=== PATIENT | female | born 1950 | race Caucasian/White ===

== ENCOUNTER → 2017-01-27 | Outpatient (CLI) | payer OTHER ==
[~2017-01-27] MED LIST: ALLEGRA ALLERG180 MG PO; CARTIA XT180 MG PO; COUMADIN3 MG PO; DILTIAZEM 24HR180 MG PO; DILTIAZEM 24HR240 MG PO; ERYTHROMYC1 APPLICAT BOTH EYES; METOPROLOL SUCC25 MG PO; MULTAQ400 MG PO; STOOL SOFTENER100 MG PO; WARFARIN SODIUM3 MG PO; WARFARIN SODIUM4 MG PO
[2017-01-27 09:40] LABS: HEMATOCRIT 42.4 % (36.0-46.0); MCH 29.4 PG (29.0-34.0); MCHC 32.3 G/DL (30.0-36.0); MEAN PLAT.VOLUME 9.2 uM^3 (9.5-12.4); PLATELET COUNT 303 K/uL (156-360); RBC DIS.WIDTH-CV 14.8 % (11.8-14.6); RBC DIS.WIDTH-SD 49.6 % (39-53); RED BLOOD COUNT 4.66 M/uL (3.80-5.20); WHITE BLOOD COUNT 7.5 K/uL (4.1-10.2)
[2017-01-27 09:52] LABS: PROTHROMBIN TIME 16.1 (9.2-11.2); PTT 34.5 (25-32)
[2017-01-27 09:54] LABS: INTER. NORMALIZED RATIO 1.6
== END | disposition home or self-care (01) ==
LOC: OPR 08:45 → EDSTATUS 09:00
PROVIDERS: Internal Medicine Hematology & Oncology
PROC: 0DBS3ZX (ICD-10-PCS; principal; 2017-01-27)
DX: C78.6 Secondary malignant neoplasm of retroperitoneum and peritoneum (principal); F17.210 Nicotine dependence, cigarettes, uncomplicated; L40.9 Psoriasis, unspecified; Z68.30 Body mass index [BMI] 30.0-30.9, adult; Z95.4 Presence of other heart-valve replacement; Z79.01 Long term (current) use of anticoagulants
CPT/HCPCS: 77012; 85027; 85610; 85730; 88305; 88341 TC; 88342 TC; J3010

== ENCOUNTER 2017-08-27 13:22 | Inpatient (IN) | payer OTHER ==
[~2017-08-27] VITALS: Ht 162.6 cm; Wt 56.3 kg
[~2017-08-27 13:22] MED LIST changes: +CARDIZEM30 MG PO
[2017-08-27 14:05] LABS: EOSINOPHIL (%) 0 % (0-5); HEMATOCRIT 35.2 % (36.0-46.0); IMMATURE GRANULOCYTE COUNT 0.2 K/uL; INSTRUMENT ABS NEUTROPHIL CT 13.1 K/uL; LYMPHOCYTE COUNT 1.7 K/uL (1.0-2.8); MCH 29.7 PG (29.0-34.0); MCHC 32.4 G/DL (30.0-36.0); MCV 91.7 FL (83-99); MEAN PLAT.VOLUME 9.5 uM^3 (9.5-12.4); MONOCYTE (%) 5.2 % (3-12); MONOCYTE COUNT 0.8 K/uL (0-0.8); NEUTROPHIL (%) 82.7 % (45-76); NEUTROPHIL COUNT 13.1 K/uL (1.8-6.4); PLATELET COUNT 402 K/uL (156-360); RBC DIS.WIDTH-CV 17.4 % (11.8-14.6); RBC DIS.WIDTH-SD 58.2 % (39-53); RED BLOOD COUNT 3.84 M/uL (3.80-5.20); WHITE BLOOD COUNT 15.8 K/uL (4.1-10.2)
[2017-08-27 14:05] LABS: ADD MIUA? YES; BILIRUBIN NEGATIVE; BLOOD NEGATIVE; COLOR AMBER ((YELLOW)); GLUCOSE (STRIP) NEGATIVE; KETONES NEGATIVE; LEUKOCYTES MODERATE; NITRITE NEGATIVE; PROTEIN (STRIP) 30; SPECIFIC GRAVITY 1.018 (1.000-1.030)
[2017-08-27 14:11] LABS: PROTHROMBIN TIME 11.6 SEC (10.2-12.9)
[2017-08-27 14:14] LABS: BACTERIA RARE /HPF; EPITHELIAL CELLS RARE /HPF; HYALINE CASTS 0-5 /LPF; MUCUS TRACE /LPF; RED BLOOD CELLS 0-5 /HPF (0-5); UCUL ADDED? YES; WHITE BLOOD CELLS 20-30 /HPF (0-5)
[2017-08-27 14:14] LABS: PTT 32.7 SEC (25-37)
[2017-08-27 14:21] LABS: CREATINE KINASE 116 IU/L (1-294); TOTAL CK 116 IU/L (1-294)
[2017-08-27 14:25] LABS: TROP-I INTERPRETATION NEGATIVE; TROPONIN-I 0.02 ng/mL (0.0-0.30)
[2017-08-27 14:27] LABS: CK-MB 1.5 ng/mL (0.0-4.9)
[2017-08-27 15:13] LABS: CHLORIDE 106 mEq/L (99-109); POTASSIUM 5.3 mEq/L (3.7-5.4)
[2017-08-27 15:14] LABS: SODIUM 136 mEq/L (136-147)
[2017-08-27 15:17] LABS: ANION GAP 7 MEQ/L (2-14); GLUCOSE 71 mg/dL (70-99)
[2017-08-27 15:18] LABS: TOTAL BILIRUBIN 0.6 mg/dL (0.0-1.0)
[2017-08-27 15:19] LABS: ALKALINE PHOSPHATASE 214 IU/L (3-129); GFR ESTIMATE (CALCULATED) > 59 mL/min/
[2017-08-27 15:21] LABS: UREA NITROGEN (BUN) 20 mg/dL (9-23)
[2017-08-27] MEDS ORDERED: DRONABINOL2.5 MG PO (23:00)
[2017-08-27] MEDS ORDERED: K-DUR20 MEQ PO (23:01)
[2017-08-27] MEDS ORDERED: MAGNESIUM400 M1 PO (23:01)
[2017-08-27] MEDS ORDERED: BENADRYL25 MG PO (23:02)
[2017-08-27] MEDS ORDERED: ARIXTRA5 MG/0.4 M SC (23:02)
[2017-08-27] MEDS ORDERED: TRAMADOL HCL50 MG PO (23:03)
[2017-08-27] MEDS ORDERED: ATIVAN0.5 MG PO (23:03)
[2017-08-27] MEDS ORDERED: MIRALAX17 GM PO (23:03)
[2017-08-27] MEDS ORDERED: ASCORBIC ACID500 M3 PO (23:04)
[2017-08-27] MEDS ORDERED: DIGOX250 MCG PO (23:04)
[2017-08-27] MEDS ORDERED: GAS RELIEF 8080 MG PO (23:05)
[2017-08-27] MEDS ORDERED: WELLBUTRIN SR100 MG PO (23:05)
[2017-08-27] MEDS ORDERED: ZOFRAN4 MG PO (23:06)
[2017-08-27] MEDS ORDERED: MILK OF MAGN PO (23:06)
[2017-08-27] MEDS ORDERED: DULCOLAX10 MG PR (23:07)
[2017-08-27] MEDS ORDERED: CALMOSEPTINE O120 GM TP (23:07)
[2017-08-27] MEDS ORDERED: LASIX20 MG PO (23:08)
[2017-08-27] MEDS ORDERED: PROVENTIL,2.5 MG/3 M IH (23:08)
[2017-08-27] MEDS ORDERED: ZINC OXIDE56.7 GM TP (23:08)
[2017-08-27] MEDS ORDERED: EXTRA STRENGTH500 M1 PO (23:09)
[2017-08-28 00:50] LABS: TROP-I INTERPRETATION NEGATIVE; TROPONIN-I < 0.01 ng/mL (0.0-0.30)
[2017-08-28 04:43] VITALS: BP 133/57
[2017-08-28 07:08] LABS: TROP-I INTERPRETATION NEGATIVE; TROPONIN-I 0.01 ng/mL (0.0-0.30)
[2017-08-28 08:13] VITALS: BP 136/57
[2017-08-28 12:17] VITALS: BP 124/76
[2017-08-28 12:18] LABS: POINT-OF-CARE METER ID UU14149397
[2017-08-28 16:36] LABS: POINT-OF-CARE METER ID UU14117124
[2017-08-28 16:39] VITALS: BP 109/53
[2017-08-28 19:35] LABS: POINT-OF-CARE METER ID UU14117124
[2017-08-28 21:55] LABS: POINT-OF-CARE METER ID UU14117124
[2017-08-29 00:18] VITALS: BP 119/56
[2017-08-29 04:00] VITALS: BP 113/53
[2017-08-29 05:47] LABS: POINT-OF-CARE METER ID UU14149397
[2017-08-29 06:55] LABS: POINT-OF-CARE METER ID UU14149397
[2017-08-29 07:27] VITALS: BP 116/55
[2017-08-29 07:41] LABS: HEMATOCRIT 31.9 % (36.0-46.0); MCH 29.2 PG (29.0-34.0); MCHC 31.3 G/DL (30.0-36.0); MCV 93.3 FL (83-99); MEAN PLAT.VOLUME 9.8 uM^3 (9.5-12.4); PLATELET COUNT 435 K/uL (156-360); RBC DIS.WIDTH-CV 17.6 % (11.8-14.6); RBC DIS.WIDTH-SD 60.3 % (39-53); RED BLOOD COUNT 3.42 M/uL (3.80-5.20); WHITE BLOOD COUNT 15.8 K/uL (4.1-10.2)
[2017-08-29 07:51] LABS: ANION GAP 3 MEQ/L (2-14); CHLORIDE 110 MEQ/L (99-109); GFR ESTIMATE (CALCULATED) > 59 mL/min/; GLUCOSE 79 mg/dL (70-99); POTASSIUM 4.4 MEQ/L (3.7-5.4); SAMPLE HEMOLYSIS CHECK 0; SAMPLE ICTERIC CHECK 0; SAMPLE LIPEMIA CHECK 0; SODIUM 138 MEQ/L (136-147); UREA NITROGEN (BUN) 21 mg/dL (9-23)
[2017-08-29 08:54] LABS: DIGOXIN 1.3 ng/mL (0.8-2.0)
[2017-08-29 10:47] LABS: POINT-OF-CARE METER ID UU14149397
[2017-08-29 12:24] VITALS: BP 105/53
[2017-08-29 12:26] LABS: POINT-OF-CARE METER ID UU14149397
[2017-08-29 16:50] VITALS: BP 107/52
[2017-08-29 22:09] LABS: POINT-OF-CARE METER ID UU14117124
[2017-08-30 00:15] VITALS: BP 106/55
[2017-08-30 00:40] LABS: POINT-OF-CARE METER ID UU14117124
[2017-08-30 03:21] VITALS: BP 104/55
[2017-08-30 06:42] LABS: POINT-OF-CARE METER ID UU14188577
[2017-08-30 07:39] LABS: POINT-OF-CARE METER ID UU14149397
[2017-08-30 07:47] LABS: EOSINOPHIL (%) 0.8 % (0-5); EOSINOPHIL COUNT 0.1 K/uL (0-0.3); HEMATOCRIT 30.3 % (36.0-46.0); IMMATURE GRANULOCYTE (%) 0.8 % (0.0-0.7); IMMATURE GRANULOCYTE COUNT 0.1 K/uL; INSTRUMENT ABS NEUTROPHIL CT 11.7 K/uL; LYMPHOCYTE COUNT 1.8 K/uL (1.0-2.8); MCH 29.2 PG (29.0-34.0); MCV 91.3 FL (83-99); MEAN PLAT.VOLUME 10.2 uM^3 (9.5-12.4); MONOCYTE (%) 6.4 % (3-12); MONOCYTE COUNT 0.9 K/uL (0-0.8); NEUTROPHIL (%) 79.6 % (45-76); NEUTROPHIL COUNT 11.7 K/uL (1.8-6.4); NRBC (%) 0.1 /100 WBC (0-0); PLATELET COUNT 381 K/uL (156-360); RBC DIS.WIDTH-CV 17.7 % (11.8-14.6); RBC DIS.WIDTH-SD 59.1 % (39-53); RED BLOOD COUNT 3.32 M/uL (3.80-5.20); WHITE BLOOD COUNT 14.7 K/uL (4.1-10.2)
[2017-08-30 07:54] LABS: ANION GAP 5 MEQ/L (2-14); CHLORIDE 111 MEQ/L (99-109); GFR ESTIMATE (CALCULATED) > 59 mL/min/; GLUCOSE 69 mg/dL (70-99); POTASSIUM 4.4 MEQ/L (3.7-5.4); SAMPLE HEMOLYSIS CHECK 0; SAMPLE ICTERIC CHECK 0; SAMPLE LIPEMIA CHECK 0; SODIUM 137 MEQ/L (136-147); UREA NITROGEN (BUN) 17 mg/dL (9-23)
[2017-08-30 09:59] LABS: POINT-OF-CARE METER ID UU14117124
[2017-08-30 10:05] VITALS: BP 123/58
[2017-08-30 13:21] VITALS: BP 116/68
[2017-08-30 13:43] LABS: POINT-OF-CARE METER ID UU14188577
[2017-08-30 16:09] LABS: PROTHROMBIN TIME 11.6 SEC (10.2-12.9)
[2017-08-30 17:41] LABS: POINT-OF-CARE METER ID UU14188577
[2017-08-30 18:07] VITALS: BP 129/66
[2017-08-30 23:51] VITALS: BP 106/56
[2017-08-31 00:21] LABS: POINT-OF-CARE METER ID UU14117124
[2017-08-31 06:18] LABS: POINT-OF-CARE METER ID UU14117124
[2017-08-31 06:39] LABS: POINT-OF-CARE METER ID UU14117124
[2017-08-31 06:49] LABS: EOSINOPHIL (%) 0 % (0-5); HEMATOCRIT 30.1 % (36.0-46.0); IMMATURE GRANULOCYTE (%) 1.1 % (0.0-0.7); IMMATURE GRANULOCYTE COUNT 0.1 K/uL; INSTRUMENT ABS NEUTROPHIL CT 10.1 K/uL; LYMPHOCYTE COUNT 0.8 K/uL (1.0-2.8); MCH 28.8 PG (29.0-34.0); MCHC 31.2 G/DL (30.0-36.0); MCV 92.3 FL (83-99); MEAN PLAT.VOLUME 10.3 uM^3 (9.5-12.4); MONOCYTE (%) 2.3 % (3-12); MONOCYTE COUNT 0.3 K/uL (0-0.8); NEUTROPHIL (%) 89.3 % (45-76); NEUTROPHIL COUNT 10.1 K/uL (1.8-6.4); NRBC (%) 0.2 /100 WBC (0-0); RBC DIS.WIDTH-CV 17.6 % (11.8-14.6); RBC DIS.WIDTH-SD 59.1 % (39-53); RED BLOOD COUNT 3.26 M/uL (3.80-5.20); WHITE BLOOD COUNT 11.3 K/uL (4.1-10.2)
[2017-08-31 07:05] LABS: PROTHROMBIN TIME 11.9 SEC (10.2-12.9)
[2017-08-31 07:13] LABS: ANION GAP 6 MEQ/L (2-14); CHLORIDE 112 MEQ/L (99-109); GFR ESTIMATE (CALCULATED) > 59 mL/min/; POTASSIUM 4.5 MEQ/L (3.7-5.4); SAMPLE HEMOLYSIS CHECK 0; SAMPLE ICTERIC CHECK 0; SAMPLE LIPEMIA CHECK 0; SODIUM 140 MEQ/L (136-147); UREA NITROGEN (BUN) 15 mg/dL (9-23)
[2017-08-31 07:15] LABS: ALKALINE PHOSPHATASE 451 IU/L (3-129); GLUCOSE 122 mg/dL (70-99); TOTAL BILIRUBIN 0.3 MG/DL (0.0-1.0)
[2017-08-31 07:23] LABS: PLATELET COUNT 519 K/uL (156-360)
[2017-08-31 09:35] VITALS: BP 123/58
[2017-08-31 12:13] VITALS: BP 101/50
[2017-08-31 17:01] VITALS: BP 104/60
[2017-08-31 19:44] VITALS: BP 113/57
[2017-08-31 23:24] VITALS: BP 114/58
[2017-09-01 07:45] LABS: EOSINOPHIL (%) 0.1 % (0-5); HEMATOCRIT 27.7 % (36.0-46.0); IMMATURE GRANULOCYTE (%) 1.1 % (0.0-0.7); IMMATURE GRANULOCYTE COUNT 0.2 K/uL; INSTRUMENT ABS NEUTROPHIL CT 12.2 K/uL; LYMPHOCYTE COUNT 1.8 K/uL (1.0-2.8); MCH 29.5 PG (29.0-34.0); MCHC 31.8 G/DL (30.0-36.0); MEAN PLAT.VOLUME 10.2 uM^3 (9.5-12.4); MONOCYTE (%) 6.1 % (3-12); MONOCYTE COUNT 0.9 K/uL (0-0.8); NEUTROPHIL (%) 80.6 % (45-76); NEUTROPHIL COUNT 12.2 K/uL (1.8-6.4); NRBC (%) 0.1 /100 WBC (0-0); PLATELET COUNT 506 K/uL (156-360); RBC DIS.WIDTH-CV 17.8 % (11.8-14.6); RBC DIS.WIDTH-SD 59.7 % (39-53); RED BLOOD COUNT 2.98 M/uL (3.80-5.20); WHITE BLOOD COUNT 15.2 K/uL (4.1-10.2)
[2017-09-01 08:15] LABS: INTER. NORMALIZED RATIO 3.9; PROTHROMBIN TIME 45.2 SEC (10.2-12.9)
[2017-09-01 08:25] LABS: ANION GAP 7 MEQ/L (2-14); CHLORIDE 114 MEQ/L (99-109); GFR ESTIMATE (CALCULATED) > 59 mL/min/; POTASSIUM 4.4 MEQ/L (3.7-5.4); SAMPLE HEMOLYSIS CHECK 0; SAMPLE ICTERIC CHECK 0; SAMPLE LIPEMIA CHECK 0; SODIUM 139 MEQ/L (136-147); UREA NITROGEN (BUN) 13 mg/dL (9-23)
[2017-09-01 08:26] LABS: GLUCOSE 67 mg/dL (70-99)
[2017-09-01 08:51] VITALS: BP 126/58
[2017-09-01 12:08] LABS: TROP-I INTERPRETATION NEGATIVE; TROPONIN-I < 0.01 ng/mL (0.0-0.30)
[2017-09-01 12:43] VITALS: BP 125/57
[2017-09-01 15:52] VITALS: BP 121/58
[2017-09-01 20:11] VITALS: BP 102/54
[2017-09-01 20:22] VITALS: BP 79/51
[2017-09-01 23:32] VITALS: BP 124/56
[2017-09-02 03:32] VITALS: BP 109/58
[2017-09-02 07:12] LABS: EOSINOPHIL (%) 0.6 % (0-5); EOSINOPHIL COUNT 0.1 K/uL (0-0.3); HEMATOCRIT 28.6 % (36.0-46.0); IMMATURE GRANULOCYTE (%) 1.2 % (0.0-0.7); IMMATURE GRANULOCYTE COUNT 0.2 K/uL; INSTRUMENT ABS NEUTROPHIL CT 12.9 K/uL; LYMPHOCYTE COUNT 1.6 K/uL (1.0-2.8); MCH 30.2 PG (29.0-34.0); MCHC 32.9 G/DL (30.0-36.0); MEAN PLAT.VOLUME 9.9 uM^3 (9.5-12.4); MONOCYTE COUNT 0.9 K/uL (0-0.8); NEUTROPHIL COUNT 12.9 K/uL (1.8-6.4); PLATELET COUNT 435 K/uL (156-360); RBC DIS.WIDTH-CV 18.5 % (11.8-14.6); RED BLOOD COUNT 3.11 M/uL (3.80-5.20); WHITE BLOOD COUNT 15.7 K/uL (4.1-10.2)
[2017-09-02 07:42] LABS: ANION GAP 4 MEQ/L (2-14); CHLORIDE 110 MEQ/L (99-109); GFR ESTIMATE (CALCULATED) > 59 mL/min/; GLUCOSE 67 mg/dL (70-99); POTASSIUM 4.4 MEQ/L (3.7-5.4); SAMPLE HEMOLYSIS CHECK 0; SAMPLE ICTERIC CHECK 0; SAMPLE LIPEMIA CHECK 0; SODIUM 137 MEQ/L (136-147); UREA NITROGEN (BUN) 13 mg/dL (9-23)
[2017-09-02 08:03] LABS: INTER. NORMALIZED RATIO 6.7; PROTHROMBIN TIME 76.8 SEC (10.2-12.9)
[2017-09-02 08:23] VITALS: BP 122/61
[2017-09-02 12:11] VITALS: BP 99/56
[2017-09-02 15:52] VITALS: BP 108/53
[2017-09-02 20:24] VITALS: BP 108/54
[2017-09-03] VITALS (7 sets, daily range): BP systolic 104–119; BP diastolic 50–65
[2017-09-03 07:38] LABS: HEMATOCRIT 27.6 % (36.0-46.0); MCHC 31.9 G/DL (30.0-36.0); MCV 91.1 FL (83-99); MEAN PLAT.VOLUME 10.2 uM^3 (9.5-12.4); PLATELET COUNT 450 K/uL (156-360); RBC DIS.WIDTH-CV 17.7 % (11.8-14.6); RBC DIS.WIDTH-SD 58.4 % (39-53); RED BLOOD COUNT 3.03 M/uL (3.80-5.20); WHITE BLOOD COUNT 16.9 K/uL (4.1-10.2)
[2017-09-03 07:45] LABS: INTER. NORMALIZED RATIO 2.4
[2017-09-04 06:00] LABS: INTER. NORMALIZED RATIO 2.8; PROTHROMBIN TIME 32.2 SEC (10.2-12.9)
[2017-09-04 08:54] LABS: HEMATOCRIT 28.5 % (36.0-46.0); MCH 30.2 PG (29.0-34.0); MCHC 32.6 G/DL (30.0-36.0); MCV 92.5 FL (83-99); NRBC (%) 0.2 /100 WBC (0-0); PLATELET COUNT 475 K/uL (156-360); RBC DIS.WIDTH-CV 18.1 % (11.8-14.6); RBC DIS.WIDTH-SD 59.9 % (39-53); RED BLOOD COUNT 3.08 M/uL (3.80-5.20); WHITE BLOOD COUNT 12.6 K/uL (4.1-10.2)
[2017-09-04 09:13] VITALS: BP 96/56
[2017-09-04] MEDS ORDERED: COUMADIN1 MG PO (11:39)
[2017-09-04] MEDS ORDERED: CARDIZEM CD,CA180 MG PO (11:39)
[2017-09-04 11:58] VITALS: BP 105/59
[2017-09-04] MEDS ORDERED: NORCO 5/3251 TABLET PO (12:05)
[2017-09-04 16:40] VITALS: BP 96/51
== END 2017-09-04 18:47 | DRG 481 ==
LOC: EME 13:22 → EDOF 21:46 → 3EAST 21:46 → ENRESERV 21:48 → CANRESERV 21:48 → ENRESERV 08-28 01:00 → 3EAST 08-28 02:14
PROVIDERS: Emergency Medicine; Hospitalist; Internal Medicine; Nurse Practitioner Adult Health
PROC: 0QS704Z Reposition Left Upper Femur with Internal Fixation Device, Open Approach (ICD-10-PCS; principal; 2017-08-30)
DX: S72.002A Fracture of unspecified part of neck of left femur, initial encounter for closed fracture (principal); W18.30XA Fall on same level, unspecified, initial encounter; Y92.121 Bathroom in nursing home as the place of occurrence of the external cause; E46 Unspecified protein-calorie malnutrition; C56.9 Malignant neoplasm of unspecified ovary; C78.6 Secondary malignant neoplasm of retroperitoneum and peritoneum; I27.20 Pulmonary hypertension, unspecified; I48.0 Paroxysmal atrial fibrillation; T81.30XD Disruption of wound, unspecified, subsequent encounter; T81.89XD Other complications of procedures, not elsewhere classified, subsequent encounter; I48.2 Chronic atrial fibrillation; D63.8 Anemia in other chronic diseases classified elsewhere; R29.6 Repeated falls; D24.1 Benign neoplasm of right breast; E11.9 Type 2 diabetes mellitus without complications; E78.5 Hyperlipidemia, unspecified; G47.33 Obstructive sleep apnea (adult) (pediatric); I10 Essential (primary) hypertension; I25.10 Atherosclerotic heart disease of native coronary artery without angina pectoris; J43.9 Emphysema, unspecified; K21.9 Gastro-esophageal reflux disease without esophagitis; L40.9 Psoriasis, unspecified; F32.9 Major depressive disorder, single episode, unspecified; F41.9 Anxiety disorder, unspecified; Z79.01 Long term (current) use of anticoagulants; Z87.891 Personal history of nicotine dependence; Z86.14 Personal history of Methicillin resistant Staphylococcus aureus infection; Z82.49 Family history of ischemic heart disease and other diseases of the circulatory system; Z86.718 Personal history of other venous thrombosis and embolism; Z86.73 Personal history of transient ischemic attack (TIA), and cerebral infarction without residual deficits; Z90.710 Acquired absence of both cervix and uterus; Z90.81 Acquired absence of spleen; Z93.3 Colostomy status; Z95.2 Presence of prosthetic heart valve
CPT/HCPCS: 36415; 70450; 71010; 73502; 73700; 76000; 80048; 80053; 80162; 81003; 82550; 82553; 82948; 83605; 84484; 85025; 85027; 85610; 85730; 86304 GA; 87040; 87086; 93005; 93306; 97530 GO; 97530 GP; 99202; 99281; 99285; C1713; C1755; J0131; J0690; J0696; J1100; J1170; J1652; J1885; J2270; J2405; J3010; J7030; Q0167

== ENCOUNTER 2017-09-20 05:03 | Inpatient (IN) | payer OTHER ==
[~2017-09-20] VITALS: Ht 157.5 cm; Wt 97.1 kg
[~2017-09-20 05:03] MED LIST changes: +ARIXTRA5 MG/0.4 M SC; +ASCORBIC ACID500 M3 PO; +ATIVAN0.5 MG PO; +BENADRYL25 MG PO; +CALMOSEPTINE O120 GM TP; +CARDIZEM CD,CA180 MG PO; +COUMADIN1 MG PO; +DIGOX250 MCG PO; +DRONABINOL2.5 MG PO; +DULCOLAX10 MG PR; +EXTRA STRENGTH500 M1 PO; +GAS RELIEF 8080 MG PO; +LASIX20 MG PO; +MAGNESIUM400 M1 PO; +MILK OF MAGN PO; +MIRALAX17 GM PO; +NORCO 5/3251 TABLET PO; +POTASSIUM CHLO20 ME2 PO; +PROVENTIL,2.5 MG/3 M IH; +TRAMADOL HCL50 MG PO; +WELLBUTRIN SR100 MG PO; +ZINC OXIDE56.7 GM TP; +ZOFRAN4 MG PO
[2017-09-20 07:01] LABS: BASOPHIL (%) 0.2 % (0-1); EOSINOPHIL (%) 0 % (0-5); HEMATOCRIT 32.1 % (36.0-46.0); HEMOGLOBIN 10.5 G/DL (11.9-15.5); IMMATURE GRANULOCYTE (%) 0.6 % (0.0-0.7); LYMPHOCYTE (%) 10.3 % (15-42); LYMPHOCYTE COUNT 1.3 K/uL (1.0-2.8); MCH 29.4 PG (29.0-34.0); MCHC 32.7 G/DL (30.0-36.0); MCV 89.9 FL (83-99); MONOCYTE (%) 8.5 % (3-12); MONOCYTE COUNT 1.1 K/uL (0-0.8); NEUTROPHIL (%) 80.4 % (45-76); NEUTROPHIL COUNT 10.2 K/uL (1.8-6.4); PLATELET COUNT 444 K/uL (156-360); RBC DIS.WIDTH-SD 55.8 % (39-53); RED BLOOD COUNT 3.57 M/uL (3.80-5.20); WHITE BLOOD COUNT 12.6 K/uL (4.1-10.2)
[2017-09-20 07:08] LABS: INTER. NORMALIZED RATIO 2.2
[2017-09-20 07:11] LABS: PTT 35.6 SEC (25-37)
[2017-09-20 07:34] LABS: APPEARANCE CLOUDY ((CLEAR)); BILIRUBIN NEGATIVE; BLOOD NEGATIVE; COLOR YELLOW ((YELLOW)); GLUCOSE (STRIP) NEGATIVE; KETONES 5; LEUKOCYTES MODERATE; NITRITE NEGATIVE; PROTEIN (STRIP) NEGATIVE; SPECIFIC GRAVITY 1.016 (1.000-1.030); UROBILINOGEN 0.2 MG/DL (0.2-1.0)
[2017-09-20 07:45] LABS: CHLORIDE 106 MEQ/L (99-109); CREATININE 0.8 MG/DL (0.6-1.3); GFR ESTIMATE (CALCULATED) > 59 mL/min/; POTASSIUM 4.9 MEQ/L (3.7-5.4); SODIUM 136 MEQ/L (136-147); UREA NITROGEN (BUN) 18 mg/dL (9-23)
[2017-09-20 07:45] LABS: BACTERIA 2+ /HPF; EPITHELIAL CELLS RARE /HPF; MUCUS TRACE /LPF; RED BLOOD CELLS 0-5 /HPF (0-5); UCUL ADDED? YES; WHITE BLOOD CELLS TNTC /HPF (0-5)
[2017-09-20 07:46] LABS: GLUCOSE 48 mg/dL (70-99)
[2017-09-20 08:07] LABS: TROP-I INTERPRETATION NEGATIVE; TROPONIN-I < 0.01 ng/mL (0.0-0.30)
[2017-09-20 09:22] LABS: ALBUMIN 1.6 G/DL (3.2-4.8); ALKALINE PHOSPHATASE 175 IU/L (3-129); ALT (GPT) 9 IU/L (3-49); AST (GOT) 26 IU/L (2-34); DIRECT BILIRUBIN 0.1 mg/dL (0.0-0.3); TOTAL BILIRUBIN 0.4 MG/DL (0.0-1.0); TOTAL PROTEIN 4.3 G/DL (6.4-8.3)
[2017-09-20] MEDS ORDERED: WELLBUTRIN SR150 MG PO (10:41)
[2017-09-20] MEDS ORDERED: WARFARIN SODIUM1 MG PO (10:42)
[2017-09-20] MEDS ORDERED: KEFLEX500 MG PO (10:44)
[2017-09-20] MEDS ORDERED: FLORASTOR250 MG PO (10:45)
[2017-09-20] MEDS ORDERED: HYDROCODON-ACE1 EAC7 PO (10:48)
[2017-09-20 11:33] VITALS: BP 112/68
[2017-09-20 15:53] VITALS: BP 121/78
[2017-09-20] MEDS ORDERED: MAGNESIUM OXID400 MG PO (17:00)
[2017-09-20 19:28] VITALS: BP 97/46
[2017-09-21 00:10] VITALS: BP 111/52
[2017-09-21 03:44] VITALS: BP 105/53
[2017-09-21 04:59] LABS: BASOPHIL (%) 0.3 % (0-1); EOSINOPHIL (%) 0.6 % (0-5); EOSINOPHIL COUNT 0.1 K/uL (0-0.3); HEMATOCRIT 30.1 % (36.0-46.0); HEMOGLOBIN 9.8 G/DL (11.9-15.5); IMMATURE GRANULOCYTE (%) 0.8 % (0.0-0.7); LYMPHOCYTE (%) 16.6 % (15-42); LYMPHOCYTE COUNT 1.8 K/uL (1.0-2.8); MCH 29.5 PG (29.0-34.0); MCHC 32.6 G/DL (30.0-36.0); MCV 90.7 FL (83-99); MONOCYTE (%) 10.7 % (3-12); MONOCYTE COUNT 1.1 K/uL (0-0.8); NEUTROPHIL COUNT 7.5 K/uL (1.8-6.4); PLATELET COUNT 416 K/uL (156-360); RBC DIS.WIDTH-CV 17.3 % (11.8-14.6); RBC DIS.WIDTH-SD 57.7 % (39-53); RED BLOOD COUNT 3.32 M/uL (3.80-5.20); WHITE BLOOD COUNT 10.6 K/uL (4.1-10.2)
[2017-09-21 05:13] LABS: CHLORIDE 103 mEq/L (99-109); POTASSIUM 4.5 mEq/L (3.7-5.4); SODIUM 133 mEq/L (136-147)
[2017-09-21 05:14] LABS: GLUCOSE 58 mg/dL (70-99)
[2017-09-21 05:18] LABS: CREATININE 0.7 mg/dL (0.6-1.3); GFR ESTIMATE (CALCULATED) > 59 mL/min/
[2017-09-21 05:19] LABS: UREA NITROGEN (BUN) 16 mg/dL (9-23)
[2017-09-21 07:38] VITALS: BP 96/47
[2017-09-21 08:47] LABS: INTER. NORMALIZED RATIO 3.1
[2017-09-21 11:05] VITALS: BP 106/52
[2017-09-21 16:00] VITALS: BP 92/54
[2017-09-21 19:10] VITALS: BP 112/53
[2017-09-22] VITALS (7 sets, daily range): BP systolic 97–105; BP diastolic 46–54
[2017-09-22 04:14] LABS: C DIFF TOXIN NEGATIVE (NEGATIVE)
[2017-09-22 09:52] LABS: HEMATOCRIT 28.8 % (36.0-46.0); HEMOGLOBIN 9.1 G/DL (11.9-15.5); MCH 28.8 PG (29.0-34.0); MCHC 31.6 G/DL (30.0-36.0); MCV 91.1 FL (83-99); PLATELET COUNT 403 K/uL (156-360); RBC DIS.WIDTH-CV 17.2 % (11.8-14.6); RBC DIS.WIDTH-SD 57.9 % (39-53); RED BLOOD COUNT 3.16 M/uL (3.80-5.20); WHITE BLOOD COUNT 11.4 K/uL (4.1-10.2)
[2017-09-22 10:04] LABS: CHLORIDE 102 MEQ/L (99-109); POTASSIUM 4.5 MEQ/L (3.7-5.4); SODIUM 132 MEQ/L (136-147)
[2017-09-22 10:10] LABS: CREATININE 0.7 MG/DL (0.6-1.3); GFR ESTIMATE (CALCULATED) > 59 mL/min/; GLUCOSE 64 mg/dL (70-99); UREA NITROGEN (BUN) 14 mg/dL (9-23)
[2017-09-23 03:37] VITALS: BP 102/45
[2017-09-23 05:20] LABS: INTER. NORMALIZED RATIO 2.5
[2017-09-23 07:45] VITALS: BP 98/44
[2017-09-23 12:22] VITALS: BP 110/73
[2017-09-23 15:54] VITALS: BP 124/73
[2017-09-23 18:38] LABS: CHLORIDE 106 MEQ/L (99-109); CREATININE 0.7 MG/DL (0.6-1.3); GFR ESTIMATE (CALCULATED) > 59 mL/min/; POTASSIUM 4.3 MEQ/L (3.7-5.4); SODIUM 137 MEQ/L (136-147); UREA NITROGEN (BUN) 15 mg/dL (9-23)
[2017-09-23 18:40] LABS: GLUCOSE 81 mg/dL (70-99)
[2017-09-23 20:50] VITALS: BP 90/49
[2017-09-24] VITALS: BP 110/51
[2017-09-24 04:32] VITALS: BP 106/49
[2017-09-24 06:14] LABS: INTER. NORMALIZED RATIO 1.9
[2017-09-24 06:28] LABS: CHLORIDE 109 MEQ/L (99-109); CREATININE 0.6 MG/DL (0.6-1.3); GFR ESTIMATE (CALCULATED) > 59 mL/min/; GLUCOSE 75 mg/dL (70-99); POTASSIUM 3.8 MEQ/L (3.7-5.4); SODIUM 138 MEQ/L (136-147); UREA NITROGEN (BUN) 14 mg/dL (9-23)
[2017-09-24 07:00] VITALS: BP 123/55
[2017-09-24 11:00] VITALS: BP 99/49
[2017-09-24] MEDS ORDERED: QUETIAPINE FUMA50 MG PO (14:08)
== END 2017-09-24 18:09 | disposition hospice, home (50) | DRG 871 ==
LOC: EME → EDBD 05:03 → EDOF 09:00 → 5WEST 09:00 → ENRESERV 09:11 → EDOF 09:25 → ENRESERV 09:35 → 5WEST 10:47 → CANRESERV 09-23 11:09 → ENRESERV 09-23 11:09 → 5WEST 09-24 18:09
PROVIDERS: Emergency Medicine; Hospitalist; Internal Medicine
DX: A41.9 Sepsis, unspecified organism (principal); G93.40 Encephalopathy, unspecified; E43 Unspecified severe protein-calorie malnutrition; N39.0 Urinary tract infection, site not specified; J18.9 Pneumonia, unspecified organism; C78.6 Secondary malignant neoplasm of retroperitoneum and peritoneum; R62.7 Adult failure to thrive; I48.2 Chronic atrial fibrillation; C56.9 Malignant neoplasm of unspecified ovary; I25.10 Atherosclerotic heart disease of native coronary artery without angina pectoris; G47.33 Obstructive sleep apnea (adult) (pediatric); I27.20 Pulmonary hypertension, unspecified; E78.5 Hyperlipidemia, unspecified; F41.9 Anxiety disorder, unspecified; E16.2 Hypoglycemia, unspecified; A09 Infectious gastroenteritis and colitis, unspecified; R21 Rash and other nonspecific skin eruption; E83.51 Hypocalcemia; E86.0 Dehydration; K57.92 Diverticulitis of intestine, part unspecified, without perforation or abscess without bleeding; I10 Essential (primary) hypertension; W18.30XA Fall on same level, unspecified, initial encounter; G89.29 Other chronic pain; R29.6 Repeated falls; K21.9 Gastro-esophageal reflux disease without esophagitis; D64.9 Anemia, unspecified; Z51.5 Encounter for palliative care; R18.8 Other ascites; S51.811D Laceration without foreign body of right forearm, subsequent encounter; S72.002D Fracture of unspecified part of neck of left femur, subsequent encounter for closed fracture with routine healing; Y92.129 Unspecified place in nursing home as the place of occurrence of the external cause; Z87.891 Personal history of nicotine dependence; Z95.2 Presence of prosthetic heart valve; Z90.710 Acquired absence of both cervix and uterus; Z86.73 Personal history of transient ischemic attack (TIA), and cerebral infarction without residual deficits; Z86.14 Personal history of Methicillin resistant Staphylococcus aureus infection; Z85.43 Personal history of malignant neoplasm of ovary; Z82.49 Family history of ischemic heart disease and other diseases of the circulatory system; Z93.3 Colostomy status; Z90.81 Acquired absence of spleen; Z79.899 Other long term (current) drug therapy
CPT/HCPCS: 70450; 71020; 73090; 73502; 74176; 80048; 80076; 81003; 82948; 83605; 83630; 84484; 85025; 85027; 85610; 85730; 86850; 86900; 86901; 87040; 87086; 87177; 87425-90; 87493; 87641; 93005; G0378; J0696; J2405; J7030; J7042; S0030